=== PATIENT | female | born 1980 | race Caucasian/White ===

== ENCOUNTER 2017-12-23 08:54 | Emergency (ER) | payer MEDICAID, OTHER ==
[~2017-12-23] VITALS: Ht 167.6 cm; Wt 69.0 kg
[2017-12-23 08:56] VITALS: BP 112/73
== END 2017-12-23 10:34 | disposition home or self-care (01) ==
LOC: ER 08:54
DX: S16.1XXA Strain of muscle, fascia and tendon at neck level, initial encounter (principal); M79.661 Pain in right lower leg; M79.672 Pain in left foot; M79.671 Pain in right foot; M79.641 Pain in right hand; V49.40XA Driver injured in collision with unspecified motor vehicles in traffic accident, initial encounter; Y93.89 Activity, other specified; Y92.410 Unspecified street and highway as the place of occurrence of the external cause; Z88.8 Allergy status to other drugs, medicaments and biological substances
CPT/HCPCS: 81025; 99283; J7030

== ENCOUNTER 2018-04-29 18:39 | Emergency (ER) | payer OTHER ==
[~2018-04-29] VITALS: Ht 167.6 cm; Wt 62.0 kg
[2018-04-29] MEDS ORDERED: IBUPROFEN 600MG TABLET PO ONE (21:00)
[2018-04-29 22:16] LABS: HCG SCREEN NEGATIVE
[2018-04-29 22:36] VITALS: BP 108/56
== END 2018-04-29 22:36 | disposition home or self-care (01) ==
LOC: ER 18:39
DX: M54.2 Cervicalgia (principal); R59.1 Generalized enlarged lymph nodes; Z90.710 Acquired absence of both cervix and uterus; Z91.041 Radiographic dye allergy status; Z88.1 Allergy status to other antibiotic agents
CPT/HCPCS: 70490; 81025; 84703; 99284